=== PATIENT | female | born 1950 | race Two or more races ===

== ENCOUNTER 2017-09-07 13:00 | Outpatient (CLI) | payer OTHER | END 2017-09-07 13:05 | disposition home or self-care (01) | LOC: MAMO-SONO 13:00 | DX: Z12.31 Encounter for screening mammogram for malignant neoplasm of breast (principal) ==

== ENCOUNTER 2018-08-05 20:14 | Emergency (ER) | payer OTHER ==
[~2018-08-05] VITALS: Ht 144.8 cm; Wt 45.4 kg
[2018-08-05] MEDS ORDERED: COZAAR25 MG (20:49)
[2018-08-05] MEDS ORDERED: SYNTHROID100 MCG PO (20:49)
== END 2018-08-06 00:06 | disposition home or self-care (01) ==
LOC: ER 20:14
DX: K29.70 Gastritis, unspecified, without bleeding (principal)